=== PATIENT | male | born 1960 ===

== ENCOUNTER 2023-04-13 01:49 | Emergency (ER) | payer OTHER ==
[~2023-04-13] VITALS: Ht 185.4 cm; Wt 110.0 kg
[2023-04-13 02:15] VITALS: PULSE 78; RESP 18; TEMP 97.8; O2SAT 100
[2023-04-13] MEDS ORDERED: HYDROmorphone HCL 2 MG/ML VL/or syr IV ONE (03:00)
[2023-04-13] MEDS ORDERED: SODIUM CHLORIDE 0.9% 1,000 ML IV ONE (03:00)
[2023-04-13 03:14] LABS: Basophils # (auto) 0 10 ^3/uL (0-0.2); Eosinophils # (auto) 0 10 ^3/uL (0-0.8); Hemoglobin 9.7 g/dL (13.5-17.5); Lymphocytes # (auto) 0.4 10 ^3/uL (0.4-5.4); Lymphocytes % (auto) 6.2 % (10.0-50.0); Monocytes # (auto) 0.2 10 ^3/uL (0-1.3); Neutrophils # (auto) 5.4 10 ^3/uL (1.6-8.6)
[2023-04-13 03:16] LABS: Basophils % (auto) 0.3 % (0.0-2.0); Eosinophils % (auto) 0.1 % (0.0-7.0); Hematocrit 31.1 % (41.0-53.0); Mean Corpuscular Hemoglobin 22.6 pg (28.0-32.0); Mean Corpuscular Hgb Conc. 31.3 g/dL (32.0-36.0); Mean Corpuscular Volume 72.2 fL (80.0-100.0); Monocytes % (auto) 3.7 % (0.0-12.0); Neutrophils % (auto) 89.7 % (37.0-80.0); Red Blood Cells 4.31 10^6/uL (4.5-5.90); Red Cell Distribution Width 17.9 % (11.8-14.3)
[2023-04-13 03:26] LABS: Alanine Aminotransferase 78 U/L (7-40); Albumin 4.6 g/dL (3.2-4.8); Alkaline Phosphatase 70 U/L (46-116); Anion Gap 8 (5-15); Aspartate Aminotransferase 48 U/L (13-40); BUN/Creatinine Ratio 10.7 (10.0-20.0); Blood Urea Nitrogen 16 mg/dL (9-23); Calcium 9.5 mg/dL (8.7-10.4); Carbon Dioxide 22 mmol/L (20-30); Chloride 108 mmol/L (98-107); Glucose 210 mg/dL (74-106); Lipase 40 U/L (12-53); Potassium 4.1 mmol/L (3.5-5.1); Sodium 138 mmol/L (136-145)
[2023-04-13 03:27] LABS: Bilirubin, Total 0.4 mg/dL (0.2-1.0); INR 1.04 (0.9-1.15); Partial Thromboplastin Time 25.8 SEC (24.5-34.5); Prothrombin Time 10.9 sec (9.3-11.8); Total Protein 7.7 g/dL (5.7-8.2)
[2023-04-13 05:00] VITALS: BP 139/84; PULSE 84; RESP 13; O2SAT 93
[2023-04-13] MEDS ORDERED: TAMS-35 PO (05:28)
[2023-04-13] MEDS ORDERED: TRAM100T32 PO (05:28)
[2023-04-13] MEDS ORDERED: CEPH250C PO (05:28)
== END 2023-04-13 06:05 | disposition home or self-care (01) ==
LOC: ER 01:49
DX: N23 Unspecified renal colic (principal); Z85.9 Personal history of malignant neoplasm, unspecified; Z98.890 Other specified postprocedural states
CPT/HCPCS: 36415; 74176; 80053; 83690; 85025; 85610; 85730; 93005; 96361; 96374; 99285; J1170; J7030